=== PATIENT | male | born 1985 | race Caucasian/White ===

== ENCOUNTER 2017-01-16 09:23 | Emergency (ER) | payer MEDICAID ==
[~2017-01-16] VITALS: Wt 91.5 kg
[~2017-01-16 09:23] MED LIST: DIVA250T60 PO; QUET50TA16 PO
[2017-01-16] MEDS ORDERED: OLANZAPINE (ODT) 5 MG TAB ODT ONE (10:00)
[2017-01-16 10:25] LABS: BASOPHIL # 0.1 10^3/ul (0.0-0.1); BASOPHILS % 0.6 % (0.0-2.0); EOSINOPHILS # 0.1 10^3/ul (0.0-0.5); HEMATOCRIT 42.1 % (42.0-52.0); HEMOGLOBIN 14.3 g/dl (14.0-18.0); LYMPHOCYTES # 2.3 10^3/ul (0.8-2.9); LYMPHOCYTES % 27.1 % (15.0-51.0); MEAN CORPUSCULAR HEMOGLOBIN 31.5 pg (29.0-33.0); MEAN CORPUSCULAR VOLUME 92.7 fl (82.0-101.0); MEAN PLATELET VOLUME 9.3 fl (7.4-10.4); MONOCYTE # 0.6 10^3/ul (0.3-0.9); MONOCYTES % 6.7 % (0.0-11.0); NEUTROPHILS % 64.1 % (39.0-77.0); PLATELET COUNT 264 10^3/UL (140-415); RED BLOOD COUNT 4.54 10^6/ul (4.70-6.10); RED CELL DISTRIBUTION WIDTH 11.7 % (11.5-14.5); WHITE BLOOD COUNT 8.4 10^3/ul (4.8-10.8)
[2017-01-16 10:47] LABS: ALANINE AMINOTRANSFERASE 29 IU/L (13-69); ALBUMIN 3.8 g/dl (3.3-4.9); ALBUMIN/GLOBULIN RATIO 1.18; ALKALINE PHOSPHATASE 92 IU/L (42-121); ANION GAP 13 (8-16); ASPARTATE AMINO TRANSFERASE 18 IU/L (15-46); BLOOD UREA NITROGEN 10 mg/dl (7-20); CALCIUM 8.7 mg/dl (8.4-10.2); CARBON DIOXIDE 23 mmol/L (21-31); CHLORIDE 107 mmol/L (97-110); CREATININE 0.75 mg/dl (0.61-1.24); GLUCOSE 91 mg/dl (70-220); POTASSIUM 4.2 mmol/L (3.5-5.1); SODIUM 139 mmol/L (135-144)
[2017-01-16 10:53] LABS: ACETAMINOPHEN < 10.0 ug/ml (10.0-30.0); ETHANOL < 10.0 mg/dl; SALICYLATE < 1.0 mg/dl (5.0-30.0)
[2017-01-16] MEDS ORDERED: DIPHENHYDRAMINE 50 MG INJ IM ONE (11:00)
[2017-01-16] MEDS ORDERED: HALOPERIDOL 5 MG INJ IM ONE (11:00)
[2017-01-16] MEDS ORDERED: LORAZEPAM 2 MG INJ IM ONE (11:00)
[2017-01-16] MEDS ORDERED: LORAZEPAM 1 MG TAB PO ONE (11:30)
--- NOTE | 2017-01-16 12:44 | PSY ---
Date/Time of Note Date/Time of Note DATE: 01/16/17 TIME: 12:38 Psychiatric Subjective Eval Consent Pt consented to telemedicine: Yes Subjective Evaluation Patient location: emergency Chief Complaint: HX OF PSYCH WITHMORE FREQUENT HOMOCIDAL IDEATION SINCE 1 MONTH Reason for consult: HOMICIDAL IDEATION History of present illness Pt has a reported history of bipolar disorder and has been prescribed depakote and seorquel. However, he has not been taking during the last month (since he was [facility] [place] [facility]). He has had increasing homicidal thoughts directed at his ex-gf new boyfriend. He has several other issues but will not talk about them. Patient states he does not feel safe. He feels that he will act on his thoughts. Reports, he is not able to quiet his thoughts. Feels aggressive. No si but has history of impulsive behavior. Past psychiatric history Past psychiatric admission x 1. Has been on a 5150 before. Diagnosed with a bipolar disorder. Hospitalization: yes Family History Mom with bipolar disorder Medical history Problems Medical Problems: (1) Homicidal ideation Status: Acute Allergies: Coded Allergies: ziprasidone HCl (Verified Allergy, Intermediate, HYPER ACTIVE, 07/24/13) ziprasidone mesylate (Verified Allergy, Intermediate, HYPER ACTIVE, ) Substance Abuse Substance abuse history: Yes (cannabis) Social History Marital status: single Level of education: NA DPA/Conservatorship: No Occupation/Senior Living: Not employed. Psychiatric Objective Eval Mental Status Examination: Appearance: Groomed Eye Contact: Fair Psychomotor Activity: Slow Behavior: Guarded Speech: Soft AFFECT: Blunt Mood: Irritable Though Process: Linear Thought Content: Normal Suicidal: No Homicidal: Yes On 72 hour hold: No Orientation: x4 Cognition: Alert Insight: Impared Judgement: Impared Laboratory Results Laboratory Tests Test 01/16/17 10:10 White Blood Count 8.410^3/ul Red Blood Count 4.5410^6/ul Hemoglobin 14.3g/dl Hematocrit 42.1% Mean Corpuscular Volume 92.7fl Mean Corpuscular Hemoglobin 31.5pg Mean Corpuscular Hemoglobin Concent 34.0g/dl Red Cell Distribution Width 11.7% Platelet Count 78026^3/UL Mean Platelet Volume 9.3fl Neutrophils % 64.1% Lymphocytes % 27.1% Monocytes % 6.7% Eosinophils % 1.0% Basophils % 0.6% Nucleated Red Blood Cells % 0.0/100WBC Neutrophils # (Manual) 5.410^3/ul Lymphocytes # 2.310^3/ul Monocytes # 0.610^3/ul Eosinophils # 0.110^3/ul Basophils # 0.110^3/ul Nucleated Red Blood Cells # 0.010^3/ul Sodium Level 139mmol/L Potassium Level 4.2mmol/L Chloride Level 107mmol/L Carbon Dioxide Level 23mmol/L Anion Gap 13 Blood Urea Nitrogen 10mg/dl Creatinine 0.75mg/dl Glucose Level 91mg/dl Calcium Level 8.7mg/dl Total Bilirubin 0.0mg/dl Direct Bilirubin 0.00mg/dl Indirect Bilirubin 0.0mg/dl Aspartate Amino Transf (AST/SGOT) 18IU/L Alanine Aminotransferase (ALT/SGPT) 29IU/L Alkaline Phosphatase 92IU/L Total Protein 7.0g/dl Albumin 3.8g/dl Globulin 3.20g/dl Albumin/Globulin Ratio 1.18 Salicylates Level < 1.0mg/dl Acetaminophen Level < 10.0ug/ml Ethyl Alcohol Level < 10.0mg/dl Assessment and Plan Assessment/Diagnosis [place] I: Unspecified Bipolar Disorder Recommendation/Plan Medication Management Patient has history of seroquel and depakote. Consider providing a Seroquel 100mg tablet while in ER as he agrees to take PO medications. Psychotherapy N/A Pt. Caregiver/Family Education N/A Follow-up/Disposition Recommend 5150 for CHARI. Suraj completed per ER. Transfer to inpatient psychiatry. Pt with a bipolar disorder and one month history of being off medications. He is having homicidal thoughts that he believes he would act on. 5150 Recommendation: Place Hold (DTO) ASHLEY GRIFFITHS Jan 16, 2017 12:44
[2017-01-16] MEDS ORDERED: QUETIAPINE 100 MG TAB PO SCH (13:00)
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
[2017-01-16 13:48] LABS: ADD UMIC NO; UR ASCORBIC ACID NEGATIVE (NEGATIVE); UR BILIRUBIN (Dip) NEGATIVE (NEGATIVE); UR BLOOD (Dip) NEGATIVE (NEGATIVE); UR CLARITY CLEAR (CLEAR); UR COLOR COLORLESS (YELLOW); UR GLUCOSE (Dip) NEGATIVE (NEGATIVE); UR KETONES (Dip) NEGATIVE (NEGATIVE); UR LEUKOCYTE ESTERASE (Dip) NEGATIVE Leu/ul (NEGATIVE); UR NITRITE (Dip) NEGATIVE (NEGATIVE); UR SPECIFIC GRAVITY (Dip) 1.001 (1.003-1.030); UR TOTAL PROTEIN (Dip) NEGATIVE (NEGATIVE); UR UROBILINOGEN (Dip) NEGATIVE (NEGATIVE)
[2017-01-16 14:02] LABS: BARBITURATES Negative (NEGATIVE); BENZODIAZEPINES Negative (NEGATIVE); CANNABINOIDS Positive (NEGATIVE); COCAINE Negative (NEGATIVE); OPIATES Negative (NEGATIVE)
[2017-01-16 20:29] VITALS: BP 128/81; PULSE 63; RESP 20; TEMP 98.9
== END 2017-01-16 20:30 | disposition short-term general hospital (02) ==
LOC: E/R 09:23
DX: R45.850 Homicidal ideations (principal); F99 Mental disorder, not otherwise specified
CPT/HCPCS: 80053; 80306; 80307; 81003; 85025; J1200; J1630; J2060; Z7502; Z7610

== ENCOUNTER 2017-02-19 22:19 | Emergency (ER) | payer MEDICAID ==
[~2017-02-19] VITALS: Ht 180.3 cm; Wt 88.6 kg
[2017-02-19 22:28] VITALS: Ht 180.3 cm; Wt 88.6 kg
--- NOTE | 2017-02-19 23:22 | RADRPT ---
PROCEDURE: XR Shoulder. CLINICAL INDICATION: Left shoulder pain. TECHNIQUE: Internal and external rotation viewsof the left shoulder were obtained. COMPARISON: 07/25/2013 FINDINGS: No acute fracture or dislocation is seen. The glenohumeral joint and acromioclavicular joint are wi thin normal limits. The osseous structures are well mineralized. The soft tissue structures are in tact. The visualized portions of the left clavicle andchest appear unremarkable. IMPRESSION: Unremarkable left shoulder series. RPTAT: HPNM Physician David Date Time Electronically viewed and signed by Physician David on 02/19/2017 23:21 /
[2017-02-20] MEDS ORDERED: HYDROCODONE/APAP (10/325) TAB PO ONE
[2017-02-20] MEDS ORDERED: KETOROLAC 60 MG INJ IM STA (00:23)
--- NOTE | 2017-02-20 00:49 | ERD ---
ER Documentation Chief Complaint Date/Time DATE: 02/20/17 TIME: 00:48 Chief Complaint left shoulder pain s/p fall, deformity noted HPI This is a very pleasant patient comes in on left shoulder pain status post fall. Patient said he fell out of bed. He said pain in the shoulder now. Denies any fevers chills nausea vomiting. Denies any head trauma. Denies any other current complaints. ROS All systems reviewed and are negative except as per history of present illness. Medications Home Meds Reported Medications Divalproex Sodium* (Depakote*) 250 Mg Tablet.dr, 500 MG PO DAILY 07/17/13 Quetiapine Fumarate* (Seroquel*) 50 Mg Tablet, 250 MG PO DAILY 07/17/13 Allergies Allergies: Coded Allergies: ziprasidone HCl (Verified Allergy, Intermediate, HYPER ACTIVE, 07/24/13) ziprasidone mesylate (Verified Allergy, Intermediate, HYPER ACTIVE, ) PMhx/Soc History of Surgery: No Anesthesia Reaction: No Hx Neurological Disorder: No Hx Respiratory Disorders: No Hx Cardiac Disorders: No Hx Psychiatric Problems: Yes (BIPOLAR ) Hx Miscellaneous Medical Probl: Yes (R shoulder dislocation) Hx Alcohol Use: No Hx Substance Use: No Hx Tobacco Use: Yes (current smoker) Smoking Status: Current every day smoker Physical Exam Vitals Vital Signs Date Time Temp Pulse Resp B/P Pulse Ox O2 Delivery O2 Flow Rate FiO2 02/19/17 22:28 98.0 61 18 146/83 97 Physical Exam Const: [] Head: Atraumatic Eyes: Normal Conjunctiva ENT: Normal External Ears, Nose and Mouth. Neck: Full range of motion..~ No meningismus. Resp: Clear to auscultation bilaterally Cardio: Regular rate and rhythm, no murmurs Abd: Soft, non tender, non distended. Normal bowel sounds Skin: No petechiae or rashes Back: No midline or flank tenderness Ext: No cyanosis, or edema Neur: Awake and alert Psych: Normal Mood and Affect Results 24 hrs Current Medications Medications (Trade) Dose Ordered Sig/Cody Route PRN Reason Start Time Stop Time Status Last Admin Dose Admin Acetaminophen/ Hydrocodone Bitart ([place] (10/325)) 1 tab ONCE ONCE PO 02/20/17 00:00 02/20/17 00:01 DC 02/19/17 23:41 Ketorolac Tromethamine (Toradol) 60 mg ONCE STAT IM 02/20/17 00:23 02/20/17 00:24 DC 02/20/17 00:32 Procedures/MDM X-ray Shoulder 3V Interpreted by me: Bones: No fracture Joints: No dislocation Foreign body: None Medical decision-making: Very pleasant patient comes in with complaints of shoulder pain. No evidence of fracture dislocation. Placed in shoulder sling. Patient to follow-up as an outpatient with orthopedics. Departure Diagnosis: Primary Impression: Shoulder pain Chronicity: acute Laterality: left Qualified Code: M25.512 - Acute pain of left shoulder Condition: Stable KAMAR GALLARDO Feb 20, 2017 00:49
[2017-02-20] MEDS ORDERED: TRAM50TA2 PO (00:50)
[2017-02-20 01:00] VITALS: BP 126/77; PULSE 52; RESP 17; TEMP 97.9
== END 2017-02-20 01:00 | disposition home or self-care (01) ==
LOC: E/R 22:19
DX: M25.512 Pain in left shoulder (principal); F17.210 Nicotine dependence, cigarettes, uncomplicated; R40.2142 Coma scale, eyes open, spontaneous, at arrival to emergency department; R40.2252 Coma scale, best verbal response, oriented, at arrival to emergency department; R40.2362 Coma scale, best motor response, obeys commands, at arrival to emergency department
CPT/HCPCS: 73030; 96372; J1885; Z7502; Z7610

== ENCOUNTER 2017-04-21 10:07 | Emergency (ER) | payer MEDICAID ==
[~2017-04-21] VITALS: Ht 175.3 cm; Wt 93.8 kg
[~2017-04-21 10:07] MED LIST changes: +TRAM50TA2 PO
[2017-04-21 10:15] VITALS: Ht 175.3 cm; Wt 93.8 kg
[2017-04-21] MEDS ORDERED: SODIUM CHLORIDE 0.9% 1L IRRIG IRR STA ×2 (11:03)
[2017-04-21] MEDS ORDERED: POLY10DR19 BOTH EYES (11:27)
[2017-04-21] MEDS ORDERED: TETRACAINE 0.5% 4 ML OPH BOTH EYES ONE (11:30)
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
== END 2017-04-21 11:46 | disposition home or self-care (01) ==
LOC: E/R 10:07
DX: T65.891A Toxic effect of other specified substances, accidental (unintentional), initial encounter (principal); F17.210 Nicotine dependence, cigarettes, uncomplicated; H10.213 Acute toxic conjunctivitis, bilateral
CPT/HCPCS: A4217; Z7502; Z7610; 99284

== ENCOUNTER 2018-12-04 00:08 | Emergency (ER) | payer MEDICAID ==
[~2018-12-04] VITALS: Ht 180.3 cm; Wt 97.6 kg
[~2018-12-04 00:08] MED LIST changes: +POLY10DR19 BOTH EYES; +QUET50TA PO; -QUET50TA16 PO
[2018-12-04 00:32] VITALS: Ht 180.3 cm; Wt 97.6 kg
--- NOTE | 2018-12-04 03:47 | ERD ---
ER Documentation Chief Complaint Chief Complaint states suicidal ideations x 5 days HPI 33-year-old man with history of depression has been without Depakote and quetiapine x1 week states he has been having increased suicidal thoughts. He states he does not feel comfortable going back to the boarding care facility and wants to be placed on a 5150 psychiatric hold. Patient denies fevers or chills, no chest pain or shortness of breath, no headache or blurry vision, no vomiting or diarrhea ROS All systems reviewed and are negative except as per history of present illness. Medications Home Meds Active Scripts Polymyxin B Sulfate-TMP* (Polymyxin B-TMP Eye Drops*) 10 Ml Drops, 1 DROP BOTH EYES QID for 7 Days, EA Prov:ROMANA ALTMAN MD 04/21/17 Tramadol HCl (Tramadol HCl) 50 Mg Tablet, 50 MG PO Q4 PRN for PAIN, #20 TAB Prov:KAMAR GALLARDO 02/20/17 Reported Medications Divalproex Sodium* (Depakote*) 250 Mg Tablet.dr, 500 MG PO DAILY 07/17/13 Quetiapine Fumarate* (Seroquel*) 50 Mg Tablet, 250 MG PO DAILY 07/17/13 Allergies Allergies: Coded Allergies: ziprasidone HCl (Verified Allergy, Intermediate, HYPER ACTIVE, 07/24/13) ziprasidone mesylate (Verified Allergy, Intermediate, HYPER ACTIVE, 07/24/13) PMhx/Soc History of Surgery: No Anesthesia Reaction: No Hx Neurological Disorder: No Hx Respiratory Disorders: No Hx Cardiac Disorders: No Hx Psychiatric Problems: Yes (BIPOLAR ) Hx Miscellaneous Medical Probl: Yes (L shoulder dislocation) Hx Alcohol Use: No Hx Substance Use: No Hx Tobacco Use: Yes (current smoker) Smoking Status: Never smoker FmHx Family History: No diabetes Physical Exam Vitals Vital Signs Date Temp Pulse Resp B/P (MAP) Pulse Ox O2 O2 Flow FiO2 Time Delivery Rate 12/04/18 99.9 100 20 152/91 98 Room Air 02:06 (111) 12/04/18 99.9 89 20 145/92 98 00:32 (109) Physical Exam GENERAL: Well-developed, well-nourished, well-hydrated, appears anxious and agitated afebrile CARDIAC: Regular rate and rhythm, no murmurs rubs or gallops LUNGS: Clear bilaterally no wheezing crackles or stridor ABDOMEN: Soft nontender, no guarding, no rigidity, no rebound, no psoas sign no obturator sign. SKIN: Warm and dry to touch, no abrasions, contusions, or hematomas, no lacerations, no ecchymosis, no target lesions, and without ulcers EXTREMITIES: No clubbing cyanosis or edema, calves are bilaterally symmetrical, no Homans sign, no popliteal cord sign. Distal pulses equal and bilateral PSYCH: Agitated Result Diagram: 12/04/18 0213 12/04/18 021 Results 24 hrs Laboratory Tests Test 12/04/18 02:11 12/04/18 02:13 Urine Color COLORLESS Urine Clarity CLEAR Urine pH 7.0 Urine Specific [place] 1.000 Urine Ketones NEGATIVE mg/dL Urine Nitrite NEGATIVE mg/dL Urine Bilirubin NEGATIVE mg/dL Urine Urobilinogen NEGATIVE mg/dL Urine Leukocyte Esterase NEGATIVE Ondina/ul Urine Hemoglobin NEGATIVE mg/dL Urine Glucose NEGATIVE mg/dL Urine Total Protein NEGATIVE mg/dl Urine Opiates Screen NEGATIVE Urine Barbiturates NEGATIVE Urine Amphetamines Screen NEGATIVE Urine Benzodiazepines Screen NEGATIVE Urine Cocaine Screen NEGATIVE Urine Cannabinoids NEGATIVE White Blood Count 11.6 10^3/ul Red Blood Count 4.31 10^6/ul Hemoglobin 13.3 g/dl Hematocrit 41.0 % Mean Corpuscular Volume 95.1 fl Mean Corpuscular Hemoglobin 30.9 pg Mean Corpuscular Hemoglobin Concent 32.4 g/dl Red Cell Distribution Width 11.7 % Platelet Count 201 10^3/UL Mean Platelet Volume 9.6 fl Immature Granulocytes % 0.800 % Neutrophils % 56.8 % Lymphocytes % 23.1 % Monocytes % 15.8 % Eosinophils % 2.8 % Basophils % 0.7 % Nucleated Red Blood Cells % 0.0 /100WBC Immature Granulocytes # 0.090 10^3/ul Neutrophils # 6.6 10^3/ul Lymphocytes # 2.7 10^3/ul Monocytes # 1.8 10^3/ul Eosinophils # 0.3 10^3/ul Basophils # 0.1 10^3/ul Nucleated Red Blood Cells # 0.0 10^3/ul Sodium Level 141 mmol/L Potassium Level 4.1 mmol/L Chloride Level 107 mmol/L Carbon Dioxide Level 23 mmol/L Anion Gap 11 Blood Urea Nitrogen 17 mg/dl Creatinine 0.96 mg/dl Est Glomerular Filtrat Rate mL/min > 60 mL/min Glucose Level 102 mg/dl Calcium Level 8.7 mg/dl Total Bilirubin 0.4 mg/dl Direct Bilirubin 0.00 mg/dl Indirect Bilirubin 0.4 mg/dl Aspartate Amino Transf (AST/SGOT) 38 IU/L Alanine Aminotransferase (ALT/SGPT) 37 IU/L Alkaline Phosphatase 85 IU/L Total Protein 6.6 g/dl Albumin 4.0 g/dl Globulin 2.60 g/dl Albumin/Globulin Ratio 1.53 Salicylates Level < 1.0 mg/dl Acetaminophen Level < 10.0 ug/ml Ethyl Alcohol Level < 10.0 mg/dl Procedures/MDM Security one-to-one watch was established. CBC and electrolytes are normal, liver function tests were normal, urine drug screen negative for drugs of abuse, urinalysis negative for infection, ethanol level pending I will follow-up. Tele-psychiatrist saw and evaluated the patient and recommended inpatient management. He also recommended Seroquel 100 mg nightly Patient's behavioral symptoms have stabilized while in the department. Patient is medically cleared and appropriate for psychiatric evaluation and work up. No e/o neurologic, toxic, infectious, or metabolic cause. Departure Diagnosis: Primary Impression: Suicidal ideation Additional Impression: Depression Depression Type: major depressive disorder Major depression recurrence: single episode Active/Remission status: currently active Major depression episode severity: moderate Qualified Codes: F32.1 - Major depressive disorder, single episode, moderate Condition: JENNY Martell MD Dec 04, 2018 03:47
--- NOTE | 2018-12-04 03:55 | PSY ---
Date/Time of Note Date/Time of Note DATE: 12/04/18 TIME: 03:53 Psychiatric Subjective Eval Consent Pt consented to telemedicine: Yes Subjective Evaluation Patient location: emergency Chief Complaint: states suicidal ideations x 5 days Reason for consult: si Hospitalization: yes Medical history Problems Medical Problems: (1) Chemical conjunctivitis of both eyes Status: Acute (2) Depression Status: Acute (3) Homicidal ideation Status: Acute (4) Poisoning by pepper spray Status: Acute (5) Psychological disorder Status: Acute (6) Shoulder pain Status: Acute (7) Suicidal ideation Status: Acute Allergies: Coded Allergies: ziprasidone HCl (Verified Allergy, Intermediate, HYPER ACTIVE, 07/24/13) ziprasidone mesylate (Verified Allergy, Intermediate, HYPER ACTIVE, 07/24/13) Social History Marital status: single Psychiatric Objective Eval Mental Status Examination: Laboratory Results Laboratory Tests Test 12/04/18 02:11 12/04/18 02:13 Urine Color COLORLESS Urine Clarity CLEAR Urine pH 7.0 Urine Specific [place] 1.000 Urine Ketones NEGATIVE mg/dL Urine Nitrite NEGATIVE mg/dL Urine Bilirubin NEGATIVE mg/dL Urine Urobilinogen NEGATIVE mg/dL Urine Leukocyte Esterase NEGATIVE Ondina/ul Urine Hemoglobin NEGATIVE mg/dL Urine Glucose NEGATIVE mg/dL Urine Total Protein NEGATIVE mg/dl Urine Opiates Screen NEGATIVE Urine Barbiturates NEGATIVE Urine Amphetamines Screen NEGATIVE Urine Benzodiazepines Screen NEGATIVE Urine Cocaine Screen NEGATIVE Urine Cannabinoids NEGATIVE White Blood Count 11.6 10^3/ul Red Blood Count 4.31 10^6/ul Hemoglobin 13.3 g/dl Hematocrit 41.0 % Mean Corpuscular Volume 95.1 fl Mean Corpuscular Hemoglobin 30.9 pg Mean Corpuscular Hemoglobin Concent 32.4 g/dl Red Cell Distribution Width 11.7 % Platelet Count 201 10^3/UL Mean Platelet Volume 9.6 fl Immature Granulocytes % 0.800 % Neutrophils % 56.8 % Lymphocytes % 23.1 % Monocytes % 15.8 % Eosinophils % 2.8 % Basophils % 0.7 % Nucleated Red Blood Cells % 0.0 /100WBC Immature Granulocytes # 0.090 10^3/ul Neutrophils # 6.6 10^3/ul Lymphocytes # 2.7 10^3/ul Monocytes # 1.8 10^3/ul Eosinophils # 0.3 10^3/ul Basophils # 0.1 10^3/ul Nucleated Red Blood Cells # 0.0 10^3/ul Sodium Level 141 mmol/L Potassium Level 4.1 mmol/L Chloride Level 107 mmol/L Carbon Dioxide Level 23 mmol/L Anion Gap 11 Blood Urea Nitrogen 17 mg/dl Creatinine 0.96 mg/dl Est Glomerular Filtrat Rate mL/min > 60 mL/min Glucose Level 102 mg/dl Calcium Level 8.7 mg/dl Total Bilirubin 0.4 mg/dl Direct Bilirubin 0.00 mg/dl Indirect Bilirubin 0.4 mg/dl Aspartate Amino Transf (AST/SGOT) 38 IU/L Alanine Aminotransferase (ALT/SGPT) 37 IU/L Alkaline Phosphatase 85 IU/L Total Protein 6.6 g/dl Albumin 4.0 g/dl Globulin 2.60 g/dl Albumin/Globulin Ratio 1.53 Salicylates Level < 1.0 mg/dl Acetaminophen Level < 10.0 ug/ml Ethyl Alcohol Level < 10.0 mg/dl Assessment and Plan Recommendation/Plan Discharge Disposition: Psychiatric inpatient Legal Status: Voluntary Assessment Additional comments: IDENTIFYING INFORMATION: 33 year old Male patient who is currently located at the hospital and for whom psychiatric consultation was requested. SOURCES OF INFORMATION: The patient who appears to be somewhat reliable and the medical records; the nursing staff. CHIEF COMPLAINT: "suicidal thoughts". HISTORY OF PRESENT ILLNESS: The patient was interviewed via telemedicine in the presence of and under the supervision of nursing staff of the hospital. The consent to conducting this interview via telemedicine was obtained by the nursing staff at the hospital. Dr. Pickens reports that the patient presented with SI. The patient reports having been depressed, hopeless, has SI with plan to walk into traffic, low appetite, insomnia, feels paranoid delusions. The patient denies having AH, VH, delusions. The patient denies using alcohol heavily or regularly. The patient denies using any other substances. In terms of past psychiatric history, the patient reports having a history of past psychiatric hospitalizations. The patient reports having a history of past suicide attempts. PAST MEDICAL HISTORY: asthma. CURRENT MEDICATIONS: depakote, seroquel- noncompliant. ALLERGIES TO MEDICATIONS: geodon. LABORATORY TESTS: CBC with WBCs 11.6, H/H 13.3/41, CMP wnl, UDS -, alcohol level not detected. SOCIAL HISTORY: , at times homeless, 2 children; at times employed. REVIEW OF SYSTEMS: Constitutional (e.g., fever, weight loss): negative; Eyes, Ears, Nose, Mouth, Throat: negative; Cardiovascular: negative; Respiratory: negative; Gastrointestinal: negative; Genitourinary: negative; Musculoskeletal: negative; Integumentary (skin and/or breast): negative; Neurological: negative; Psychiatric: as per HPI; Endocrine: negative; Hematologic/Lymphatic: negative; Allergic/Immunologic: negative. MENTAL STATUS EXAMINATION: General Appearance and Behavior: Calm, cooperative with the interview, pleasant with the current interviewer, makes fair eye contact, fairly groomed, no abnormal movements noted, Speech: Regular rate, regular rhythm, normal latency, normal volume, somewhat decreased amount, Flow of thought: sequential, logical, goal-directed, Content of thought: no auditory hallucinations, no visual hallucinations, + delusions, positive for suicidal ideation; no homicidal ideation, Mood: "depressed", Affect: dysthymic, dysphoric, not reactive, Attention: normal based on the interview, Insight: fair, Judgment: poor, Memory: normal based on the interview, Sensorium: alert and oriented to person, place and date. ASSESSMENT: The patient's presentation and history are consistent with the diagnosis of unspecified mood disorder. The patient presents with depressive and psychotic symptoms in the context of medication noncompliance, psychosocial stressors. PLAN: - Medication management: Would start Seroquel 100 mg by mouth at bedtime. Would start haloperidol 5 mg IM PRN severe agitation q4 hours. Would start diphenhydramine 50 mg IM PRN severe agitation q4 hours. Would start lorazepam 2 mg IM PRN severe agitation q4 hours Will defer to the inpatient psychiatry team for other medication changes. - Labs: No other laboratory tests are needed at this time. - Psychotherapy: Provided supportive psychotherapy and psychoeducation. - Disposition: Would recommend voluntary admission to the inpatient psychiatric unit as the patient would benefit from such an intervention so long as the patient has been cleared medically for admission to psychiatry. The patient is agreeable to being hospitalized in the inpatient psychiatric unit at this time. Would place on suicide precautions. Discussed about the above plan with Dr. Pickens. FLAVIO JACKSON MD Dec 04, 2018 03:55
[2018-12-04] MEDS ORDERED: QUETIAPINE 100 MG TAB PO ONE (04:00)
[2018-12-04 11:04] VITALS: BP 125/68; PULSE 90; RESP 17
== END 2018-12-04 11:13 | disposition short-term general hospital (02) ==
LOC: E/R 00:08
DX: F32.1 Major depressive disorder, single episode, moderate (principal); Z87.891 Personal history of nicotine dependence
CPT/HCPCS: 36415; 80053; 80307; 81003; 85025; Z7502; Z7610